=== PATIENT | male | born 1970 | race Caucasian/White ===

== ENCOUNTER 2023-01-18 09:56 | Day surgery (SDC) | payer BC ==
[~2023-01-18 09:56] MED LIST: Metoclopramide 10 MG/2 ML SDV IV PRN; Sodium Chloride 0.9% 1,000 ML IV SCH
[2023-01-18 11:38] VITALS: BP 122/91; PULSE 69
== END 2023-01-18 12:53 | disposition home or self-care (01) ==
LOC: LB.SDS 09:56
PROVIDERS: ATTEND Surgery
DX: Z12.11 Encounter for screening for malignant neoplasm of colon (principal); I10 Essential (primary) hypertension
CPT/HCPCS: 45378; J2704; J7030